=== PATIENT | female | born 1980 | race Caucasian/White ===

== ENCOUNTER → 2018-08-16 | Outpatient (CLI) | payer OTHER ==
[~2018-08-16] MED LIST: APAP500 PO; CEPHALEXIN 250250 M1 PO; VISTARIL 25 MG25 M1 PO
[2018-08-16 12:36] LABS: ABSOLUTE BASOPHILS 0.1 thou/uL (0.0-0.2); ABSOLUTE EOSINOPHILS 0.1 thou/uL (0.0-0.7); ABSOLUTE LYMPHOCYTES 2.4 thou/uL (0.8-5.3); ABSOLUTE MONOCYTES 0.5 thou/uL (0.0-1.2); ABSOLUTE NEUTROPHILS 4.7 thou/uL (1.6-8.1); BASOPHILS 0.8 %; EOSINOPHILS 0.9 %; HEMATOCRIT 34.7 % (37.0-47.0); HEMOGLOBIN 11.7 gm/dL (12.0-15.0); LYMPHOCYTES 30.9 %; MCH 29.9 pg (26.0-34.0); MCHC 33.7 g/dL (28.0-37.0); MCV 88.7 fL (80.0-100.0); MPV 6.9 fl. (7.2-11.1); NUCLEATED RBCS 0 /100WBC; PLATELET COUNT* 341 thou/uL (150-400); POLYS 60.4 %; RBC 3.91 mil/uL (4.20-5.00); RDW-CV 12.8 % (10.5-14.5); WBC 7.8 thou/uL (4.0-11.0)
[2018-08-16 12:54] LABS: ALBUMIN 4.1 g/dL (3.4-5.0); ALKALINE PHOSPHATASE 56 U/L (46-116); ANION GAP 8 mmol/L (7-16); BUN 17 mg/dL (7-18); CALCIUM 9.7 mg/dL (8.5-10.1); CHLORIDE 105 mmol/L (98-107); CO2 27 mmol/L (21-32); GLUCOSE 98 mg/dL (70-99); POTASSIUM 4.1 mmol/L (3.5-5.1); SERUM ASSESSMENT Clear; SGOT 24 U/L (15-37); SGPT 26 U/L (30-65); SODIUM 140 mmol/L (136-145); TOTAL BILIRUBIN 0.4 mg/dL (<0.1-1.0); TOTAL PROTEIN 7.2 g/dL (6.4-8.2)
[2018-08-16 13:30] LABS: CHOLESTEROL 139 mg/dL (<200); HDL CHOLESTEROL 68 mg/dL (>40); LDL CHOLESTEROL 60 mg/dL (<100); TRIGLYCERIDE 59 mg/dL (<150); VLDL 12 mg/dL (<40)
== END ==
LOC: M.LAB 12:04
PROVIDERS: Family Medicine
DX: Z01.419 Encounter for gynecological examination (general) (routine) without abnormal findings (principal)

== ENCOUNTER 2018-09-11 11:29 | Observation (INO) | payer OTHER ==
[~2018-09-11] VITALS: Ht 160 cm; Wt 66.7 kg
--- NOTE | ~2018-09-11 | H ---
[address] [address] HISTORY AND PHYSICAL Name: LAUREL NUNEZ Room: [address] Taniya Mac#: [id number] Admission: 09/11/18 Attend Phys: Mehul Mancia DO Discharge: 09/12/18 Date of : 80 Report #: [id number] THIS REPORT FOR: //name// Please refer to the History and Physical performed in the physician's office. By: [id number] Records Staff IRENA /VITO
[~2018-09-11 11:29] MED LIST changes: +VENTOLIN HFA 1818 GM
[2018-09-11 20:00] VITALS: BP 107/65
[2018-09-11 21:45] VITALS: BP 103/53
[2018-09-12 02:30] VITALS: BP 97/56
[2018-09-12 06:54] VITALS: BP 97/56
[2018-09-12] MEDS ORDERED: NORCO 5-325 TA1 EACH PO (09:21)
[2018-09-12 09:22] VITALS: BP 97/56
[2018-09-12 09:49] VITALS: BP 97/56
--- NOTE | 2018-09-12 10:48 | OP ---
[address] [address] OPERATIVE REPORT Name: LAUREL NUNEZ Room: [address] Taniya Mac#: [id number] Admission: 09/11/18 Attend Phys: Mehul Mancia DO Discharge: 09/12/18 Date of : 80 Report #: [id number] THIS REPORT FOR: //name// CC: Mehul Win DO DATE OF SERVICE: 09/11/2018 REFERRING PHYSICIAN: Maura Win DO. PREOPERATIVE DIAGNOSIS: Left inguinal hernia. POSTOPERATIVE DIAGNOSIS: Bilateral indirect inguinal hernias. PROCEDURE: Da Manuel robotic-assisted laparoscopic bilateral inguinal hernia repair with mesh. SURGEON: Mehul Mancia DO. INDEPENDENT FREIGHT AGENT: Dr. Bebe Delgado. ANESTHESIA: General endotracheal. ESTIMATED BLOOD LOSS: 20 mL. COMPLICATIONS: None. DESCRIPTION OF PROCEDURE: After obtaining proper consents and discussing risks and complications with the patient, she was taken to the operating room, laid on the supine position, administered general anesthesia. She was then prepped and draped in the usual fashion. A timeout was performed. We confirmed the appropriate patient and procedure. Preoperative antibiotics had been given. SCDs were in place. All necessary equipment was within the room and we had marked the patient in the preoperative holding area in left groin and this was confirmed. We then made a small supraumbilical skin incision with a #11 scalpel blade. This was carried down through the skin into the subcutaneous tissue using electrocautery for hemostasis. Once the fascia was encountered, it was grasped and elevated with Vannesa clamps and then divided further. The peritoneum was then bluntly opened using a hemostat. We then placed 2-0 Vicryl sutures in a [id number] fashion to secure the da Manuel camera port, which was then inserted and insufflation was begun. Once insufflation was complete, full visual inspection of the anterior abdominal organs was performed. This revealed a very small left inguinal hernia. There did appear to be a slightly larger right inguinal hernia. So at this point, we elected to proceed with bilateral laparoscopic inguinal hernia repairs. I did place two [place] [id number] OPERATIVE REPORT Name: LAUREL NUNEZZABETH Room: [address] Taniya Mac#: [id number] Admission: 09/11/18 Attend Phys: Mehul Mancia DO Discharge: 09/12/18 Date of : 80 Report #: [id number] under direct vision and then we docked the da Manuel robot. Once the robot was docked, I then inserted laparoscopic monopolar scissors in the right upper quadrant and a bipolar fenestrated grasper in the left upper quadrant. I then broke scrub and went on console. Once on console, we identified the ASIS on both the right and left side. Starting on the left side, I opened the peritoneum from the median umbilical ligament to the left ASIS. I then bluntly dissected the preperitoneal space all the way down until we were able to visualize the pubic ramus and below that medially and then I continued the dissection laterally. I freed the peritoneum and hernia sac from the round ligament. I then continued the dissection more laterally to allow for placement of either large or medium sized 3DMax mesh. I then repeated the same process on the patient's right side, opening the peritoneum from the median umbilical ligament laterally to the ASIS. I then dissected the preperitoneal space down medially all the way down to the pubic ramus and then continued the dissection laterally until I identified the indirect inguinal hernia sac, which was dissected free from the round ligament and then I continued dissection laterally all the way out to the ASIS to allow for placement of mesh. I did bring in a ruler to better land manager the size of mesh that we should use and since this patient was fairly petite, I elected to use just a medium Bard 3DMax mesh on both the right and left sides. The mesh was then inserted, opened in its entirety on both sides. I then sutured the mesh in place to Bola's ligament on both sides using 2-0 Vicryl suture and also medial and lateral to the inferior epigastric vessels also using 2-0 Vicryl suture. The peritoneal flaps were then closed using a running 2-0 absorbable V-Loc suture. Once this was complete, I then rescrubbed and went back to the patient's bedside where we removed all the needles and then we undocked the robot. The trocars were removed and PMI closure device was used to close both the right and left upper quadrant trocar sites. We then closed the supraumbilical fascia using with 2 previously placed 0 Vicryl sutures plus 2 additional 0 Vicryl suture. Skin incisions were all closed using 4-0 Monocryl subcuticular stitches. Mastisol, Steri-Strips, sterile OpSite and pressure dressings were placed. The patient tolerated the procedure well, was awakened in the operating room and transported to recovery room in stable condition. Sponge, needle and instrument counts were all correct at the end of the procedure. <ELECTRONICALLY SIGNED> By: Mehul Mancia DO 09/12/18 1048 [id number] Mancia DO /dillon
== END 2018-09-12 09:50 | disposition home or self-care (01) ==
LOC: M.SUR 11:29 → M.3W 18:19 → M.TBA 18:19 → M.3W 20:03
PROVIDERS: ADMIT Surgery
DX: K40.20 Bilateral inguinal hernia, without obstruction or gangrene, not specified as recurrent (principal); F41.9 Anxiety disorder, unspecified; Z88.0 Allergy status to penicillin; Z79.899 Other long term (current) drug therapy

== ENCOUNTER 2019-02-09 20:14 | Emergency (ER) | payer OTHER ==
[~2019-02-09] VITALS: Ht 170.2 cm; Wt 54.4 kg
[~2019-02-09 20:14] MED LIST changes: +NORCO 5-325 TA1 EACH PO
[2019-02-09] MEDS ORDERED: IRON325 PO (20:28)
[2019-02-09] MEDS ORDERED: IBUPROFEN 800800 MG PO (21:40)
[2019-02-09] MEDS ORDERED: FLEXERIL PO ×2 (21:40→21:41)
[2019-02-09] MEDS ORDERED: IBUPROFEN 800800 M1 PO (21:41)
[2019-02-09 21:56] VITALS: BP 116/81
== END 2019-02-09 21:57 | disposition home or self-care (01) ==
LOC: M.ERS 20:14
DX: S13.4XXA Sprain of ligaments of cervical spine, initial encounter (principal); S30.0XXA Contusion of lower back and pelvis, initial encounter; Z88.0 Allergy status to penicillin; W50.0XXA Accidental hit or strike by another person, initial encounter; Y92.89 Other specified places as the place of occurrence of the external cause; Y93.64 Activity, baseball; Y99.8 Other external cause status

== ENCOUNTER → 2019-02-15 | Outpatient (CLI) | payer OTHER ==
[~2019-02-15] MED LIST changes: +FLEXERIL PO; +IBUPROFEN 800800 M1 PO; +IBUPROFEN 800800 MG PO; +IRON325 PO
== END ==
LOC: M.MRI 02-06 12:41
DX: M51.26 Other intervertebral disc displacement, lumbar region (principal); M47.816 Spondylosis without myelopathy or radiculopathy, lumbar region; M47.818 Spondylosis without myelopathy or radiculopathy, sacral and sacrococcygeal region; R60.0 Localized edema

== ENCOUNTER → 2019-02-20 | Outpatient (CLI) | payer OTHER | LOC: M.MRI 13:55 | DX: S76.012A Strain of muscle, fascia and tendon of left hip, initial encounter (principal); M54.5 Low back pain; X58.XXXA Exposure to other specified factors, initial encounter; Y93.89 Activity, other specified; Y92.89 Other specified places as the place of occurrence of the external cause; Y99.8 Other external cause status ==

== ENCOUNTER → 2019-05-15 | Outpatient (CLI) | payer OTHER | LOC: M.LAB 13:20 | DX: M25.559 Pain in unspecified hip (principal) ==

== ENCOUNTER → 2019-06-14 | Outpatient (CLI) | payer OTHER | LOC: M.MRI 11:12 | DX: M16.12 Unilateral primary osteoarthritis, left hip (principal) ==

== ENCOUNTER → 2019-11-06 | Outpatient (CLI) | payer OTHER ==
[2019-11-06 08:06] LABS: ABSOLUTE EOSINOPHILS 0.2 thou/uL (0.0-0.7); ABSOLUTE LYMPHOCYTES 2.2 thou/uL (0.8-5.3); ABSOLUTE MONOCYTES 0.4 thou/uL (0.0-1.2); ABSOLUTE NEUTROPHILS 3.9 thou/uL (1.6-8.1); BASOPHILS 0.7 %; EOSINOPHILS 2.2 %; HEMATOCRIT 36.7 % (37.0-47.0); HEMOGLOBIN 12.8 gm/dL (12.0-15.0); LYMPHOCYTES 32.2 %; MCH 31.3 pg (26.0-34.0); MCHC 34.8 g/dL (28.0-37.0); MONOCYTES 6.4 %; MPV 6.6 fl. (7.2-11.1); NUCLEATED RBCS 0 /100WBC; PLATELET COUNT* 343 thou/uL (150-400); POLYS 58.5 %; RBC 4.08 mil/uL (4.20-5.00); RDW-CV 13.1 % (10.5-14.5); WBC 6.7 thou/uL (4.0-11.0)
[2019-11-06 08:16] LABS: ALBUMIN 3.9 g/dL (3.4-5.0); ALKALINE PHOSPHATASE 49 U/L (46-116); ANION GAP 8 mmol/L (7-16); BUN 16 mg/dL (7-18); CHLORIDE 105 mmol/L (98-107); CHOLESTEROL 146 mg/dL (<200); CO2 26 mmol/L (21-32); CREATININE 0.9 mg/dL (0.6-1.3); GLUCOSE 92 mg/dL (70-99); HDL CHOLESTEROL 75 mg/dL (>40); LDL CHOLESTEROL 64 mg/dL (<100); POTASSIUM 4.1 mmol/L (3.5-5.1); SGOT 22 U/L (15-37); SGPT 28 U/L (30-65); SODIUM 139 mmol/L (136-145); TC:HDL 1.9 Ratio (Not establshd); TOTAL BILIRUBIN 0.6 mg/dL (<0.1-1.0); TOTAL PROTEIN 7.2 g/dL (6.4-8.2); TRIGLYCERIDE 39 mg/dL (<150); VLDL 8 mg/dL (<40)
[2019-11-06 08:21] LABS: SERUM ASSESSMENT Clear
[2019-11-07 02:06] LABS: GLYCOHEMOGLOBIN (HGB A1C) 5.1 % (4.8-5.6)
== END ==
LOC: M.LAB 07:32
PROVIDERS: ATTEND Family Medicine
DX: Z01.419 Encounter for gynecological examination (general) (routine) without abnormal findings (principal); E55.9 Vitamin D deficiency, unspecified; Z11.59 Encounter for screening for other viral diseases; Z83.3 Family history of diabetes mellitus

== ENCOUNTER → 2020-04-01 | Outpatient (CLI) | payer OTHER ==
[2020-04-01 12:16] LABS: ABSOLUTE BASOPHILS 0.1 thou/uL (0.0-0.2); ABSOLUTE EOSINOPHILS 0.1 thou/uL (0.0-0.7); ABSOLUTE LYMPHOCYTES 2.2 thou/uL (0.8-5.3); ABSOLUTE MONOCYTES 0.4 thou/uL (0.0-1.2); ABSOLUTE NEUTROPHILS 2.9 thou/uL (1.6-8.1); EOSINOPHILS 1.8 %; HEMATOCRIT 36.8 % (37.0-47.0); HEMOGLOBIN 12.4 gm/dL (12.0-15.0); LYMPHOCYTES 38.8 %; MCH 30.7 pg (26.0-34.0); MCHC 33.8 g/dL (28.0-37.0); MONOCYTES 7.1 %; MPV 6.8 fl. (7.2-11.1); NUCLEATED RBCS 0 /100WBC; PLATELET COUNT* 328 thou/uL (150-400); POLYS 51.3 %; RBC 4.05 mil/uL (4.20-5.00); RDW-CV 13.1 % (10.5-14.5); WBC 5.7 thou/uL (4.0-11.0)
[2020-04-01 13:21] LABS: ESR (SEDRATE) 9 mm/hr (0-20)
== END ==
LOC: M.LAB 11:59
PROVIDERS: ATTEND Family Medicine
DX: R06.00 Dyspnea, unspecified (principal); R07.9 Chest pain, unspecified; M25.50 Pain in unspecified joint

== ENCOUNTER → 2021-01-19 | Outpatient (CLI) | payer OTHER ==
[2021-01-19 12:10] LABS: ABSOLUTE BASOPHILS 0.1 thou/uL (0.0-0.2); ABSOLUTE EOSINOPHILS 0.1 thou/uL (0.0-0.7); ABSOLUTE MONOCYTES 0.5 thou/uL (0.0-1.2); ABSOLUTE NEUTROPHILS 3.5 thou/uL (1.6-8.1); HEMATOCRIT 37.7 % (37.0-47.0); HEMOGLOBIN 12.9 gm/dL (12.0-15.0); LYMPHOCYTES 32.5 %; MCH 31.1 pg (26.0-34.0); MCHC 34.2 g/dL (28.0-37.0); MONOCYTES 7.7 %; MPV 6.4 fl. (7.2-11.1); NUCLEATED RBCS 0 /100WBC; PLATELET COUNT* 326 thou/uL (150-400); POLYS 56.8 %; RBC 4.15 mil/uL (4.20-5.00); RDW-CV 12.7 % (10.5-14.5); WBC 6.1 thou/uL (4.0-11.0)
[2021-01-19 13:13] LABS: ESR (SEDRATE) 10 mm/hr (0-20)
[2021-01-19 18:25] LABS: ALBUMIN 4.5 g/dL (3.4-5.0); CALCIUM 9.5 mg/dL (8.5-10.1); CREATININE 1.1 mg/dL (0.6-1.3); POTASSIUM 4.3 mmol/L (3.5-5.1); TOTAL BILIRUBIN 0.4 mg/dL (<0.1-1.0); TOTAL PROTEIN 7.5 g/dL (6.4-8.2)
== END ==
LOC: M.LAB 11:53
PROVIDERS: ATTEND Family Medicine
DX: R55 Syncope and collapse (principal)

== ENCOUNTER → 2021-01-27 | Outpatient (CLI) | payer OTHER ==
[2021-01-27] VITALS (25 sets, daily range): BP systolic 11–137; BP diastolic 54–91
--- NOTE | 2021-01-29 12:41 | CARD ---
[address] [address] CARDIAC CATH REPORT Name: LAUREL NUNEZ Room: [facility]#: [id number] Admission: 01/27/21 Attend Phys: Gurinder Stratton MD Discharge: Date of : 80 Report #: [id number] THIS REPORT FOR: cc: Maura Win Linda J. DO Liston, Michael J. MD [facility] ~ cc: Maura Win DO DATE OF SERVICE: 01/27/2021 CARDIAC PROCEDURE PROCEDURE: Tilt table testing. INDICATION: Syncope. PROCEDURE DESCRIPTION: After informed consent was obtained, the patient was brought to the cardiac holding area. Orthostatic blood pressures were checked. The patient was not orthostatic. She was then placed on the tilt table and secured using the designated straps. Heart rate and blood pressure were monitored every 2 minutes after a 70-degree head-upright tilt. The patient remained stable for the initial 20 minutes of the tilt table test. At this time, she was given 0.4 mg of sublingual nitroglycerin. The patient began to have symptoms of lightheadedness and dizziness and visual disturbances after approximately 4 minutes. The patient was noted to have hypotension, with her blood pressure dropping to 102/58. At this time, her pulse rate dropped to 50 beats per minute. At this point in time, she did pass out. The tilt table was then placed in the supine position and the patient recovered. IMPRESSION: 1. Syncope. 2. Positive tilt table, suggesting neurocardiogenic syncope. <ELECTRONICALLY SIGNED> By: Gurinder Stratton MD, FACC 01/29/21 1241 [id number] [id number] Stratton MD, FACC /nt
== END | disposition home or self-care (01) ==
LOC: M.CL 12:34
PROVIDERS: ATTEND Internal Medicine Cardiovascular Disease
DX: R55 Syncope and collapse (principal); Z88.0 Allergy status to penicillin